=== PATIENT | male | born 1965 | race Hispanic/Latino ===

== ENCOUNTER 2019-10-28 10:18 | Emergency (ER) | payer SELFPAY ==
[2019-10-28] MEDS ORDERED: Ibuprofen 800 MG TAB ONE (10:57)
[2019-10-28] MEDS ORDERED: Acetaminophen 500 MG TAB ONE (10:57)
--- NOTE | 2019-10-28 13:13 | RAD ---
RIGHT KNEE FOUR VIEWS: History: Injury, right knee pain. FINDINGS/IMPRESSION: No acute fracture or dislocation is seen. POS: [facility]
== END 2019-10-28 11:51 | disposition home or self-care (01) ==
LOC: MADERS 10:18
DX: S83.411A Sprain of medial collateral ligament of right knee, initial encounter (principal); F17.210 Nicotine dependence, cigarettes, uncomplicated; W17.2XXA Fall into hole, initial encounter